=== PATIENT | female | born 1985 | race African-American/Black ===

== ENCOUNTER 2021-09-22 10:06 | Inpatient (IN) | payer MEDICAID ==
[~2021-09-22] VITALS: Ht 160 cm; Wt 133.6 kg
[2021-09-22] MEDS ORDERED: ONDANSETRON HCL 4MG/2ML INJ IV STA (10:25)
[2021-09-22] MEDS ORDERED: KETOROLAC 30MG/ML VIAL IV STA (10:25)
[2021-09-22] MEDS ORDERED: FAMOTIDINE 20MG/2ML VIAL IV ONE (10:30)
[2021-09-22] MEDS ORDERED: LORAZEPAM 1MG TABLET PO ONE (10:30)
[2021-09-22 11:30] LABS: BASOPHILS % 0.6 % (0.0-2.0); EOSINOPHILS % 0.5 % (0.0-5.0); HEMATOCRIT. 36.4 % (36.0-48.0); HEMOGLOBIN. 12.2 g/dL (12.0-16.0); MEAN CORPUSCULAR HEMOGLOBIN 28.5 pg (28.0-32.0); MEAN CORPUSCULAR VOLUME 85.3 fL (81.0-99.0); MEAN PLATELET VOLUME 7.2 fl (7.4-10.4); MONOCYTES % 5.5 % (2.0-8.0); NEUTROPHILS % 83.4 % (40.0-76.0); PLATELET 491 x1000/uL (130-400); RED BLOOD CELL COUNT 4.27 mill/uL (4.2-5.4); RED CELL DISTRIBUTION WIDTH 14.8 % (11.6-14.6)
[2021-09-22 11:33] LABS: CHLORIDE 110 mEq/L (98-107)
[2021-09-22 12:05] LABS: HCG SCREEN NEGATIVE
[2021-09-22] MEDS ORDERED: MORPHINE SULFATE 4 MG/ML CPJ (NOT FOR IM USE) IV ONE ×2 (12:15→13:30)
[2021-09-22] MEDS ORDERED: POTASSIUM CHLORIDE 20MEQ TABLET SR PO NR (15:45)
[2021-09-22] MEDS ORDERED: SODIUM CHLORIDE 0.9% 1,000 ML IV ONE (16:30)
[2021-09-22] MEDS ORDERED: LORAZEPAM 2MG/ML CPJ IV PRN (17:00)
[2021-09-22 17:53] LABS: UCG SCREEN NEGATIVE
[2021-09-22 18:41] LABS: *AMPHETAMINES SCREEN URINE NEGATIVE (NEGATIVE); *BARBITURATES SCREEN URINE NEGATIVE (NEGATIVE); *BENZODIAZEPINES SCREEN URINE NEGATIVE (NEGATIVE); *COCAINE SCREEN URINE NEGATIVE (NEGATIVE); METHADONE URINE SCREEN NEGATIVE (NEGATIVE)
[2021-09-22 18:42] LABS: CANNABINOID URINE SCREEN NEGATIVE (NEGATIVE); PHENCYCLIDINE URINE SCREEN NEGATIVE (NEGATIVE)
[2021-09-22 18:43] LABS: OPIATES URINE SCREEN PRESUMTIVE POSITIVE (NEGATIVE)
[2021-09-22] MEDS ORDERED: IOHEXOL-350 100 ML BOTTLE ONE (18:48)
[2021-09-22 20:46] LABS: CREATINE KINASE 440 IU/L (26-192)
[2021-09-22] MEDS ORDERED: ASPIRIN 81MG EC TABLET PO NR (23:00)
[2021-09-23] VITALS (7 sets, daily range): BP systolic 132–168; BP diastolic 68–88
[2021-09-23] MEDS ORDERED: AMLO10TA80 PO (00:07)
[2021-09-23] MEDS ORDERED: LOSA100T32 PO (00:07)
[2021-09-23] MEDS ORDERED: VORT20TA PO (00:07)
[2021-09-23] MEDS ORDERED: ONDANSETRON HCL 4MG/2ML INJ IV PRN (00:15)
[2021-09-23] MEDS: LOSARTAN POTASSIUM 100 MG TABLET PO SCH ×2 (01:01→09:22)
[2021-09-23] MEDS: ACETAMINOPHEN 325MG TABLET PO PRN ×3 (01:01→12:56)
[2021-09-23] MEDS: AMLODIPINE 10MG TABLET PO SCH ×2 (01:02→09:21)
[2021-09-23] MEDS ORDERED: MEDICATION NOT ON FORMULARY EA (Baclofen 10 MG) PO PRN (02:00)
[2021-09-23] MEDS: BACLOFEN 10MG TABLET PO PRN ×3 (02:08→23:03)
[2021-09-23 07:36] LABS: BASOPHILS % 0.5 % (0.0-2.0); EOSINOPHILS % 0.9 % (0.0-5.0); HEMATOCRIT. 35.2 % (36.0-48.0); HEMOGLOBIN. 11.8 g/dL (12.0-16.0); LYMPHOCYTES % 15.6 % (20.0-50.0); MEAN CORPUSCULAR HEMOGLOBIN 28.4 pg (28.0-32.0); MEAN CORPUSCULAR VOLUME 84.8 fL (81.0-99.0); MEAN PLATELET VOLUME 7.6 fl (7.4-10.4); MONOCYTES % 6.2 % (2.0-8.0); NEUTROPHILS % 76.8 % (40.0-76.0); PLATELET 464 x1000/uL (130-400); RED BLOOD CELL COUNT 4.15 mill/uL (4.2-5.4)
[2021-09-23 07:49] LABS: CHLORIDE 111 mEq/L (98-107)
[2021-09-23 08:00] LABS: CREATINE KINASE 465 IU/L (26-192)
[2021-09-23] MEDS: ENOXAPARIN 40MG/0.4ML SYR SUBCUT SCH ×2 (09:22→20:51)
[2021-09-23] MEDS ORDERED: KETOROLAC 30MG/ML VIAL IV PRN (14:30)
[2021-09-23] MEDS ORDERED: POTASSIUM CHLORIDE 20MEQ/PACKET PO SCH (14:30)
[2021-09-23] MEDS ORDERED: IOHEXOL-350 100 ML BOTTLE ONE (16:24)
[2021-09-24] VITALS: BP 128/84
[2021-09-24 04:00] VITALS: BP 115/76
[2021-09-24 06:43] LABS: BASOPHILS % 0.6 % (0.0-2.0); HEMATOCRIT. 33.9 % (36.0-48.0); HEMOGLOBIN. 11.5 g/dL (12.0-16.0); LYMPHOCYTES % 20.8 % (20.0-50.0); MEAN CORPUSCULAR VOLUME 85.2 fL (81.0-99.0); MEAN PLATELET VOLUME 7.2 fl (7.4-10.4); MONOCYTES % 7.8 % (2.0-8.0); NEUTROPHILS % 68.8 % (40.0-76.0); PLATELET 459 x1000/uL (130-400); RED BLOOD CELL COUNT 3.98 mill/uL (4.2-5.4); RED CELL DISTRIBUTION WIDTH 15.1 % (11.6-14.6)
[2021-09-24 06:48] LABS: CHLORIDE 113 mEq/L (98-107)
[2021-09-24 06:57] LABS: PARTIAL THROMBOPLASTIN TIME 32.6 sec (23.4-31.0); PROTHROMBIN TIME 10.6 sec (9.6-11.0)
[2021-09-24 08:00] VITALS: BP 137/85
[2021-09-24] MEDS: LOSARTAN POTASSIUM 100 MG TABLET PO SCH (08:48)
[2021-09-24] MEDS: AMLODIPINE 10MG TABLET PO SCH (08:49)
[2021-09-24] MEDS ORDERED: ASPIRIN 81MG EC TABLET PO SCH (09:00)
[2021-09-24] MEDS ORDERED: PNEUMOCOCCAL 23-VAL P-SAC VAC 0.5 ML IM ONE (10:00)
[2021-09-24] MEDS ORDERED: REGADENOSON 0.4 MG/5 ML IV NR (10:30)
[2021-09-24] MEDS: BACLOFEN 10MG TABLET PO PRN (11:47)
[2021-09-24 12:00] VITALS: BP 121/75
[2021-09-24] MEDS ORDERED: REGADENOSON 0.4 MG/5 ML IV ONE (14:30)
[2021-09-24 16:00] VITALS: BP 135/78
[2021-09-24] MEDS ORDERED: IBUP-2030 MT (17:25)
[2021-09-24 17:56] VITALS: BP 135/78
== END 2021-09-24 19:40 | disposition home or self-care (01) | DRG 243 ==
LOC: ER 10:16 → 5WST 13:21 → ENRESERV 22:12
PROVIDERS: ADMIT Internal Medicine; ATTEND Internal Medicine
PROC: 5A09357 Assistance with Respiratory Ventilation, Less than 24 Consecutive Hours, Continuous Positive Airway Pressure (ICD-10-PCS; principal; 2021-09-24)
DX: K21.9 Gastro-esophageal reflux disease without esophagitis (principal); Z68.43 Body mass index [BMI] 50.0-59.9, adult; M48.02 Spinal stenosis, cervical region; G95.9 Disease of spinal cord, unspecified; D75.839 Thrombocytosis, unspecified; F41.9 Anxiety disorder, unspecified; F32.A Depression, unspecified; G47.33 Obstructive sleep apnea (adult) (pediatric); Z20.822 Contact with and (suspected) exposure to COVID-19; I10 Essential (primary) hypertension; E66.01 Morbid (severe) obesity due to excess calories; Z87.11 Personal history of peptic ulcer disease; Z71.3 Dietary counseling and surveillance; M25.512 Pain in left shoulder; M25.511 Pain in right shoulder; K27.9 Peptic ulcer, site unspecified, unspecified as acute or chronic, without hemorrhage or perforation; J39.2 Other diseases of pharynx
CPT/HCPCS: 36415; 70491; 71045; 71275; 72141; 73030; 78452; 80048; 80053; 80305; 81025; 82550; 83735; 83880; 84443; 84484; 84703; 85025; 85379; 87426; 90732; 93005; 93017; 93306; 94660; 99285; A4565; A9500; J1650; J1885; J2060; J2270; J2405; J2785; J3490; Q9967